=== PATIENT | female | born 1985 | race Hispanic/Latino ===

== ENCOUNTER 2018-09-01 20:17 | Emergency (ER) | payer BC, OTHER ==
[2018-09-01 21:05] LABS: BASOPHILS % (AUTO) 0.3 % (0.0-5.0); EOSINOPHILS % (AUTO) 1.3 % (0.0-8.0); LYMPHOCYTES % (AUTO) 25.6 % (21.0-51.0); MEAN CORPUSCULAR HEMOGLOBIN 32.4 pg (27.0-33.0); MEAN CORPUSCULAR HGB CONC 34.3 g/dL (32.0-36.0); MEAN CORPUSCULAR VOLUME 94.4 fL (79-99); MONOCYTES % (AUTO) 7.2 % (3.0-13.0); NEUTROPHILS % (AUTO) 65.6 % (40.0-77.0); PLATELET COUNT (AUTO) 215 K/uL (130-400); RED BLOOD CELL COUNT(AUTO) 4.12 MIL/uL (4.00-5.50); RED CELL DISTRIBUTION WIDTH 12.6 % (11.0-15.5)
[2018-09-01 21:18] LABS: CREATININE 0.8 mg/dL (0.5-1.5); POTASSIUM 3.6 mmol/L (3.5-5.1)
[2018-09-01 21:23] LABS: BILIRUBIN,TOTAL 0.2 mg/dL (0.2-1.0); TOTAL PROTEIN, SERUM 8.5 g/dL (6.0-8.3)
== END 2018-09-02 00:06 | disposition home or self-care (01) ==
LOC: EDH 20:17
DX: R07.89 Other chest pain (principal); R51 Headache; I10 Essential (primary) hypertension
CPT/HCPCS: 36415; 70450; 71045; 80053; 84484; 84702; 85025; 93005

== ENCOUNTER 2019-01-17 03:00 | Emergency (ER) | payer BC, OTHER ==
[2019-01-17] MEDS ORDERED: ONDANSETRON HCL 4 MG/2 ML VIAL ONE (03:16)
[2019-01-17] MEDS ORDERED: FAMOTIDINE/PF 20 MG/2 ML VIAL IV ONE (03:16)
[2019-01-17] MEDS ORDERED: SODIUM CHLORIDE 0.9% 1000ML 1,000 ML IV ONE (03:16)
[2019-01-17] MEDS ORDERED: DiphenhydrAMINE HCL 50 MG/ML VIAL ONE (03:20)
[2019-01-17] MEDS ORDERED: METOCLOPRAMIDE 10 MG/2 ML VIAL ONE (03:20)
[2019-01-17 03:26] LABS: BASOPHILS % (AUTO) 0.4 % (0.0-5.0); EOSINOPHILS % (AUTO) 0.7 % (0.0-8.0); LYMPHOCYTES % (AUTO) 13.9 % (21.0-51.0); MEAN CORPUSCULAR HEMOGLOBIN 31.2 pg (27.0-33.0); MEAN CORPUSCULAR HGB CONC 33.6 g/dL (32.0-36.0); MEAN CORPUSCULAR VOLUME 92.6 fL (79-99); MONOCYTES % (AUTO) 3.2 % (3.0-13.0); NEUTROPHILS % (AUTO) 81.8 % (40.0-77.0); NUCLEATED RED BLOOD CELLS 0.1 % (0.0-0.19); PLATELET COUNT (AUTO) 227 K/uL (130-400); RED BLOOD CELL COUNT(AUTO) 4.53 MIL/uL (4.00-5.50); RED CELL DISTRIBUTION WIDTH 12.8 % (11.0-15.5); WHITE BLOOD COUNT (AUTO) 12.5 K/uL (4.8-10.8)
[2019-01-17 03:44] LABS: ALBUMIN 4.3 g/dL (3.5-5.0); BILIRUBIN,TOTAL 0.5 mg/dL (0.2-1.0); CREATININE 0.9 mg/dL (0.5-1.5); TOTAL PROTEIN, SERUM 8.7 g/dL (6.0-8.3)
[2019-01-17 03:46] LABS: POTASSIUM 2.9 mmol/L (3.5-5.1)
[2019-01-17] MEDS ORDERED: MAGNESIUM HYDROXIDE 30 ML/UDCUP ONE (04:03)
[2019-01-17] MEDS ORDERED: LIDOCAINE HCL 2% VISCOUS 15 ML UDCUP ONE (04:03)
[2019-01-17 04:47] LABS: APPEARANCE,URINE Clear (CLEAR); BILIRUBIN,URINE Negative (NEGATIVE); COLOR,URINE Yellow (YELLOW); GLUCOSE, URINE (UA) Negative (NEGATIVE); KETONES,URINE 15 mg/dL (NEGATIVE); LEUKOCYTE ESTERASE ,URINE Trace (NEGATIVE); NITRATE,URINE Negative (NEGATIVE); OCCULT BLOOD,URINE Negative (NEGATIVE); PROTEIN,URINE Negative (NEGATIVE); UROBILINOGEN,URINE 0.2 mg/dL (0.2-1.0)
[2019-01-17 04:49] LABS: HCG,QUAL RESULT NEGATIVE (NEGATIVE)
[2019-01-17 04:54] LABS: AMPHET/METH SCREEN,URINE NEGATIVE (NEGATIVE); BARBITURATE SCREEN, URINE NEGATIVE (NEGATIVE); BENZODIAZEPINES SCREEN,URINE NEGATIVE (NEGATIVE); CANNABINOID SCREEN,URINE NEGATIVE (NEGATIVE); COCAINE SCREEN,URINE NEGATIVE (NEGATIVE); OPIATE SCREEN,URINE NEGATIVE (NEGATIVE); PHENCYCLIDINE SCREEN,URINE NEGATIVE (NEGATIVE)
[2019-01-17 05:10] LABS: BACTERIA,URINE Few /HPF (None Seen); RBC,URINE 0-1 /HPF (0-1)
[2019-01-17] MEDS ORDERED: DICYCLOMINE HCL 20 MG TAB ONE (05:32)
== END 2019-01-17 05:46 | disposition home or self-care (01) ==
LOC: EDH 03:00
DX: R10.13 Epigastric pain (principal); R11.0 Nausea; F15.90 Other stimulant use, unspecified, uncomplicated
CPT/HCPCS: 36415; 80053; 80305; 81001; 81025; 83690; 85025; 96374; 96375; 99285; G0480; J1200; J2405; J2765; J3490; J7030

== ENCOUNTER 2022-04-20 12:03 | Emergency (ER) | payer BC, OTHER ==
[~2022-04-20] VITALS: Ht 152.4 cm; Wt 63.5 kg
[2022-04-20] MEDS ORDERED: FAMO-136 PO (13:13)
[2022-04-20] MEDS ORDERED: MONT10TA21 PO (13:13)
[2022-04-20] MEDS ORDERED: PRED20TA3 PO (13:13)
[2022-04-20] MEDS ORDERED: EPIN0.3P3 IJ (13:14)
[2022-04-20] MEDS ORDERED: CETI1SOL17 PO (13:18)
[2022-04-20] MEDS ORDERED: FAMOTIDINE 20MG TAB PO ONE (13:30)
[2022-04-20] MEDS ORDERED: SOLU-MEDROL 125MG VIAL IM ONE (13:30)
[2022-04-20 13:32] VITALS: BP 116/82
== END 2022-04-20 13:49 | disposition home or self-care (01) ==
LOC: EDH 12:03
DX: T78.3XXA Angioneurotic edema, initial encounter (principal); I10 Essential (primary) hypertension; Z90.89 Acquired absence of other organs
CPT/HCPCS: 96372; 99283; J2930